=== PATIENT | male | born 1985 | race Caucasian/White ===

== ENCOUNTER 2024-07-31 20:07 | Emergency (ER) | payer OTHER, SELFPAY ==
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
[2024-07-31 20:21] VITALS: BP 150/106; PULSE 79; RESP 16; TEMP 36.4; O2SAT 98
[2024-07-31] MEDS: CYCLOBENZAPRINE HCL 5 MG TABLET PO (21:50)
[2024-07-31] MEDS: HYDROcodone/acetaminophen (*CRX) 5-325 MG TABLET 1 TAB PO (21:50)
--- NOTE | 2024-07-31 21:52 | PC.NURSE ---
patient in room stating, I cannot breath with this c-collar on . this rn educated patient on risks of removing cervical collar. pt verbalized he wanted his c- collar removed at this time. vital signs are within normal limits at this time. karis hodges made aware.
--- OUTSIDE RECORDS SUMMARY | 2024-07-31 22:33 | XMS_ITS | Continuity of Care Document ---
Author Organization [facility] Address [address] [place] [address] [address] [place] [address] Phone Care Team Providers Care Community Health Education Coordinator Name Role Phone Fabian Trejo Unavail able Procedures Procedure Date FCE Each 15min Therapeutic Activities Neuromuscular Re-Ed Therapeutic Exercise Manual Therapy Hot or Cold Pack Therapeutic Activities Therapeutic Exercise Neuromuscular Re-Ed Manual Therapy Hot or Cold Pack Therapeutic Exercise Neuromuscular Re-Ed Manual Therapy Therapeutic Activities Hot or Cold Pack Therapeutic Activities PT Evaluation Moderate Complexity Manual Therapy Hot or Cold Pack Electrical Stimulation Neuromuscular Re-Ed Therapeutic Exercise Neuromuscular Re-Ed Therapeutic Exercise Manual Therapy Therapeutic Activities Hot or Cold Pack Electrical Stimulation Therapeutic Activities Therapeutic Exercise Neuromuscular Re-Ed Hot or Cold Pack Manual Therapy Electrical Stimulation Therapeutic Activities Neuromuscular Re-Ed Progress Note Therapeutic Exercise Manual Therapy Hot or Cold Pack Electrical Stimulation Neuromuscular Re-Ed Manual Therapy Therapeutic Exercise Hot or Cold Pack Electrical Stimulation Therapeutic Exercise Manual Therapy Electrical Stimulation Neuromuscular Re-Ed Hot or Cold Pack Therapeutic Exercise Hot or Cold Pack Neuromuscular Re-Ed Therapeutic Activities Manual Therapy Electrical Stimulation Therapeutic Activities Progress Note Electrical Stimulation Manual Therapy Neuromuscular Re-Ed Hot or Cold Pack Therapeutic Exercise Therapeutic Activities Neuromuscular Re-Ed Therapeutic Exercise Manual Therapy Hot or Cold Pack Electrical Stimulation Manual Therapy Therapeutic Activities Neuromuscular Re-Ed Therapeutic Exercise Hot or Cold Pack Electrical Stimulation Hot or Cold Pack Electrical Stimulation Neuromuscular Re-Ed Therapeutic Exercise Therapeutic Activities Manual Therapy Progress Note Neuromuscular Re-Ed Therapeutic Activities Electrical Stimulation Hot or Cold Pack Manual Therapy Therapeutic Exercise Therapeutic Activities Neuromuscular Re-Ed Therapeutic Exercise Manual Therapy Hot or Cold Pack Electrical Stimulation Neuromuscular Re-Ed Therapeutic Exercise Therapeutic Activities Hot or Cold Pack Electrical Stimulation Manual Therapy Therapeutic Activities Neuromuscular Re-Ed Therapeutic Exercise Manual Therapy Hot or Cold Pack Electrical Stimulation Progress Note Therapeutic Activities Neuromuscular Re-Ed Therapeutic Exercise Hot or Cold Pack Manual Therapy Electrical Stimulation Therapeutic Activities Therapeutic Exercise Neuromuscular Re-Ed Hot or Cold Pack Manual Therapy Electrical Stimulation Neuromuscular Re-Ed Therapeutic Exercise Progress Note Therapeutic Activities Manual Therapy Hot or Cold Pack Electrical Stimulation Hot or Cold Pack Neuromuscular Re-Ed Therapeutic Activities Manual Therapy Therapeutic Exercise Electrical Stimulation Therapeutic Exercise Manual Therapy Therapeutic Activities Electrical Stimulation Neuromuscular Re-Ed Hot or Cold Pack Therapeutic Exercise Therapeutic Activities Manual Therapy Neuromuscular Re-Ed Electrical Stimulation Hot or Cold Pack Therapeutic Exercise Neuromuscular Re-Ed Manual Therapy Neuromuscular Re-Ed Hot or Cold Pack Therapeutic Exercise Electrical Stimulation Manual Therapy PT Evaluation Low Complexity Neuromuscular Re-Ed Therapeutic Exercise Hot or Cold Pack Electrical Stimulation Advance Directives Directive Yes / No Effective Date File Name No Information Encounters Encounter Description Practice Location Reason(s) For Visit Diagnoses Date Provider Providers Copied on Encounter [facility], [id number], tel:[phone] [place] No Information Gypsy Peralta. [address] [place] [address], [facility], . tel:[phone] Referring Provider: Andrea Kaba, [address] [place] [address] [place] [address], [address]. tel:[phone] [facility] [address], [id number], tel:[phone] [place] No Information Klely Richard. [address], [facility], . tel:[phone] Referring Provider: Rashaun Gibbons, [address] [place] [address], [address]. tel:[phone] [facility] [address], [id number], tel:[phone] [place] No Information Kelly Richard. [address] [facility], [address], [facility], . tel:[phone] Referring Provider: Rashaun Gibbons, [address] [place] [address], [address]. tel:[phone] [facility] [address], [id number], tel:[phone] [place] No Information Kelly Jose Manuel. [address] [facility], [address], [place], [address], [place]. tel:[phone] Referring Provider: Rashaun Gibbons, [address] [place] [address], [address]. tel:[phone] [address], [place], [place], [id number], [place] tel:[phone] [place] No Information Kelly Jose Manuel. [address] [facility], [address], [place], [address], [place]. tel:[phone] Referring Provider: Rashaun Gibbons, [facility] [place], [address]. tel:[phone] [facility] [address] [place], [place] [address], [place], [place], [id number], [place] tel:[phone] [place] No Information Ministerio Cotto. . Referring Provider: Serena Sr, [address] [place], [address]. tel:[phone] [place] [address] [facility], [place], [place], [id number], [place] tel:[phone] [place] No Information Ministerio Cotto. . Referring Provider: Serena Sr, [address] [place], [address]. tel:[phone] [facility] [address], [place], [place], [id number], [place] tel:[phone] [place] No Information Ministerio Cotto. . Referring Provider: Serena Sr [address] [place], [address]. tel:[phone] [facility], [place], [address], [place] tel:[phone] [place] No Information Kelly Jose Manuel. [address] [facility], [address], [place], [place], [facility], . tel:[phone] Referring Provider: [place], [address]. tel:[phone] [place] [address], [place], [place], [id number], tel:[phone] [place] No Information Kelly Richard. [address] [facility], [address], [place], [place], [facility], . tel:[phone] Referring Provider: Serena Sr, [address] [facility], [place], [address]. tel:[phone], [id number], tel:[phone] [place] No Information Maddison Valverde. [address] [place] [address], [address], [place], [facility], . tel:[phone] Referring Provider: [place], [address]. tel:[phone], [id number], tel:[phone] [place] No Information Ministerio Cotto. . Referring Provider: [place], [address]. tel:[phone], [id number], [place] tel:[phone] [place] No Information Ministerio Cotto. . Referring Provider: [place], [address]. tel:[phone] [facility] [address] [place], [place] [address], [place], [place], [id number], tel:[phone] [place] No Information Ministerio Cotto. . Referring Provider: Serena Remberto, [address] [place] [address], [address]. tel:[phone] [place] [address] [facility] [address], [place], [place], [id number], [place] tel:[phone] [place] No Information Ministerio Cotto. . Referring Provider: Serena Sr, [address] [place] [address], [address]. tel:[phone] [place] [address] [address], [place], [id number], [place] tel:[phone] [place] No Information Ministerio Cotto. . Referring Provider: Serena Sr, [address] [place] [address], [address]. tel:[phone] [place] [address] [facility] [address], [place], [place], [id number], tel:[phone] [place] No Information Ministerio Cotto. . Referring Provider: Serena Sr, [address] [place] [address], [address]. tel:[phone] [place] [address] [facility] [address], [place], [place], [id number], [place] tel:[phone] [place] No Information Ministerio Cotto. . Referring Provider: [place], [address]. tel:[phone] [place] [address] [facility] [address], [place], [id number], [place] tel:[phone] [place] No Information Ministerio Cotto. . Referring Provider: [place], [address]. tel:[phone] [facility], [address], [place], [place], [id number], [place] tel:[phone] [place] No Information Ministerio Cotto. . Referring Provider: Jory Ragsdale[address] [place] [address], [address]. tel:[phone] [facility], [address], [place], [place], [id number], [place] tel:[phone] [place] No Information Ministerio Cotto. . Referring Provider: Serena Sr, [address] [place] [address], [address]. tel:[phone] [place] [address] [address], [place], [id number], [place] tel:[phone] [place] No Information Essner Yadiel. . Referring Provider: Serena Sr, [address] [place] [address], [address]. tel:[phone] [place] [address], [facility] [address], [place], [place], [id number], [place] tel:[phone] [place] No Information Ministerio Cotto. . Referring Provider: Serena Sr, [address] [place], [address]. tel:[phone] [place] [address], [facility] [address], [place], [id number], [place] tel:[phone] [place] No Information Ministerio Cotto. . Referring Provider: [place], [address]. tel:[phone] [place] [address] [address], [place], [place], [address], [place] tel:[phone] [place] No Information Ministerio Cotto. . Referring Provider: [place], [address]. tel:[phone] [place] [address] [address], [place], [place], [id number], [place] tel:[phone] [place] No Information Minisetrio Cotto. . Referring Provider: [place], [address]. tel:[phone] [facility], [place], [place], [id number], tel:[phone] [place] No Information Ministerio Cotto. . Referring Provider: Serena Sr, [address] [employer], [place], [address]. tel:[phone] [facility], [place], [place], [id number], tel:[phone] [place] No Information Ministerio Cotto. . Referring Provider: Serena Sr, [address] [employer], [place], [address]. tel:[phone] Family History Family Member Type Diagnosis Age At Onset No Information Payers Payer name Insurance type Covered democrat ID Authorbrad dodgeharsh(s) [employer] [place] SP WC [id number] Social History Type Description Quantity Date Captured Comments Sex Male Smoking Status No Information Chief Complaint And Reason For Visit No Information Reason For Referral Reason For Referral No Information Plan Of Treatment Date Type Action Status Goal Tobacco Cessation Counseling completed Goal Tobacco cessation counseling completed Goal Tobacco Cessation Counseling completed Referral Ordered: Referrals: Specialist. Evaluate and Treat (related to Adjustment disorder with depressed mood) ordered Referral Ordered: Weight management: Referral to physician timeframe: 1 Month. (related to Overweight) ordered Referral Ordered: Depression: Depression management program timeframe: 1 Day. (related to Depression) ordered Referral Ordered: Depression: Depression management program timeframe: 1 Day. (related to Depression) ordered Referral Ordered: Clinical Psychology (related to Depression) ordered Referral Ordered: PCP timeframe: 1 week. (related to Overweight) ordered Referral Ordered: Referrals: Specialist. Evaluate and Treat (related to Adjustment disorder with depressed mood) ordered Referral Ordered: Clinical Psychology (related to Depression) ordered Referral Ordered: PCP timeframe: 1 week. (related to Overweight) ordered Referral Ordered: Weight management: Referral to physician timeframe: 1 Month. (related to Overweight) ordered Referral Ordered: Referrals: Specialist. Evaluate and Treat (related to Adjustment disorder with depressed mood) ordered Referral Ordered: Depression: Depression management program timeframe: 1 Day. (related to Depression) ordered Referral Ordered: Clinical Psychology (related to Depression) ordered Referral Ordered: Referrals: Specialist. Evaluate and Treat (related to Adjustment disorder with depressed mood) ordered Referral Ordered: Depression: Depression management program timeframe: 1 Day. (related to Depression) ordered Referral Ordered: Clinical Psychology (related to Depression) ordered History Of Present Illness Encounter Date Complaint History Of Prese nt Illness No Information Functional Status Date Functional Assessmen t No Information Instructions Date Instruction Additional Infor mation Prescribed activity/exercise edu cation Related to Overweight Prescribed activity/exercise edu cation Related to Overweight Dietary needs education Related to Overweight Dietary needs education Related to Overweight Assessments Type Assessment Date No Information Patient Care Teams Name Effective Dates (start - stop) Status Members No Information
--- OUTSIDE RECORDS SUMMARY | 2024-07-31 22:33 | XMS_ITS | Clinical Summary ---
Author Organization [facility] Address [address] [facility] [place] [address] Care Team Providers Care Rubber Grinder Name Role Phone Unavailable Primary Care Provider Unavailabl e Source Comments [facility],non-owned Affiliates and Associated Physician Practices is amultiple site organization consisting of ambulatory clinics and hospital sitesin [place], [place], [place] and [place]. This disclosure is being madepursuant to the Care Everywhere program and may not contain all information available regarding this patient. Last updated 18.[facility] Encounters Date Type Department Care Team Description 07/19/2024 Travel from Last 3 Months Social History Tobacco Use Types Packs/Day Years Used Date Smoking Tobacco: Never Assessed Sex and Gender Information Value Date Recorded Sex Assigned at Not on file Gender Identity Not on file Sexual Orientation Not on file Plan of Treatment Upcoming Encounters Date Type Department Care Team (Late st Contact Info) Description 08/03/2024 10:00 AM CDT Testing Visit [facility] - Otol[facility]ology [id number] Cueto [address] [place] [phone] Marie Fritz AuD [address] [place] [address] 08/03/2024 10:30 AM CDT Office Visit [facility] - Otolaryngology [address] [place] [phone] Faye Cartwright, YIELD LOSS INSPECTOR-SCHOOL AIDE [address] [place], [place] [id number] Health Maintenance Due Date Last Done Comments HIV SCREENING 10/23/1999 HEPATITIS C SCREENING 10/18/2002 DTAP/TDAP/TD VACCINES (1 - Tdap) 10/23/2003 HEPATITIS B VACCINE (1 of 3 - 19+ 3-dose series) 10/23/2003 COVID-19 VACCINE (2023-2 5 season) 2024 INFLUENZA VACCINE (#1) 2024 DEPRESSION SCREENING 05/05/2024 ZOSTER VACCINE (1 of 2) 2034 HIB VACCINE Aged Out No longer eligi ble based on patient's age to complete this topic HPV VACCINE Aged Out No longer eligi ble based on patient's age to complete this topic MENINGOCOCCAL (Group B) VACC INE SHARED DECISION-MAKING Aged Out No longer eligibl e based on patient's age to complete this topic MENINGOCOCCAL GROUPS A/C/Y/W VACCINE Aged Out No longer eligible b ased on patient's age to complete this topic PNEUMOCOCCAL VACCINE Aged Out No long er eligible based on patient's age to complete this topic Miguelangel Singletary Personal/Family Self 1985
--- OUTSIDE RECORDS SUMMARY | 2024-07-31 22:33 | XMS_ITS | Patient Health Record ---
Author Organization [facility] Address [address] [place] [address] Care Team Providers Care Machine Sander Name Role Phone Rashaun Gibbons Unavailable [phone] ALLERGIES No Known Allergies REASON FOR REFERRAL No Information MEDICATIONS Medication SIG (Take, Route, Fr equency, Duration) Notes Start Date End Date Status traMADol HCl 50 MG 1 tablet Orally q 6 hours PRN POST-procedural pain for 10 days 11/01/2021 Active diazePAM 5 MG TAKE 1 TABLET BY NEETU TH 30 MINUTES PRIOR TO MRI AND THE 2ND TABLET AT TIME OF MRI IF NEEDED Oral for 1 Active traMADol HCl 50 MG TAKE 1 TABLET BY NEETU TH EVERY 6 HOURS NEEDED FOR PAIN Oral for 15 Active SOCIAL HISTORY Tobacco Use: Social History Observation Description Date Details (start date - stop date) Never Smoker NA - NA Sex Assigned At : Social History Observation Description Sex Assigned At Unknown Tobacco Use/Smoking Question Answer Notes Are you a nonsmoker PROBLEMS Problem Type ICD Code Onset Dates Problem Status W/U Status Risk SNOMED Code Notes Problem Arthropathy of cervical facet joint (M47.812) Active confirmed Arthropathy of cervical spine facet joint (disorder) (516238297) Problem Neck pain (M54.2) Active confirmed Neck pain (12135687) PLAN OF TREATMENT No Information MEDICATIONS ADMINISTERED Medication Instructions Date of Administration Dosage Notes Bilateral C4-5-6 MBPR (cervi nikhil facet) RF Denervation 11/01/2021 Bilateral C5/6 Facet Joint Injections with Fluoroscopy 10/17/2021
--- OUTSIDE RECORDS SUMMARY | 2024-07-31 22:33 | XMS_ITS | Clinical Summary ---
Author Organization [facility] Address [address] [place] [address] Phone Care Team Providers Care Deployment Engineer Name Role Phone Unavailable Primary Care Provider Unavailabl e Allergies No known active allergies Medications cyclobenzaprine (FLEXERIL) 10 mg tablet Take 1 Tablet (10 mg) by mouth 3 times daily as needed for Spasm. 20 Tablet 1 Active naproxen (NAPROSYN) 500 mg tablet Take 1 Tablet (500 mg) by mouth 2 times daily with meals. 20 Tablet 1 Active diazePAM (VALIUM) 5 mg tablet TAKE 1 TABLET BY MOUTH 30 MINUTES PRIOR TO MRI AND THE 2ND TABLET AT TIME OF MRI IF NEEDED 2 Active methylPREDNISol one (MEDROL DOSPACK) 4 mg Tablets, Dose Pack TAKE DIRECTED 2 Active oxymetazoline (Afrin, oxymetazoline,) 0.05 % [place], Non-Aerosol Administer 2 Sprays in each nostril 2 times daily as needed for Congestion. Up to 3 days 22 mL 4 Active benzonatate (TESSALON) 200 mg capsule Take 1 Capsule (200 mg) by mouth 3 times daily as needed for Cough. 20 Capsule 4 Active cetirizine (ZyrTEC) 10 mg tablet Take 1 Tablet (10 mg) by mouth daily. 30 Tablet 4 Active Active Problems No known active problems Encounters Date Type Department Care Team Description 07/21/2024 External Device Data [facility] ABSTRACTION Provider, Abstract 07/21/2024 External Device Data [facility] ABSTRACTION Provider, Abstract 07/12/2024 External Device Data [facility]STRACTION Provider, Abstract 07/10/2024 External Device Data [facility] Provider, Abstract 07/09/2024 External Device Data [facility]STRACTION Provider, Abstract 07/06/2024 External Device Data [facility] ABSTRACTION Provider, Abstract 06/08/2024 External Device Data [facility] ABSTRACTION Provider, Abstract 06/08/2024 External Device Data [facility] ABSTRACTION Provider, Abstract 06/08/2024 External Device Data [facility] ABSTRACTION Provider, Abstract 05/27/2024 External Device Data [facility] ABSTRACTION Provider, Abstract 05/18/2024 External Device Data [facility] ABSTRACTION Provider, Abstract 05/11/2024 External Device Data [facility] ABSTRACTION Provider, Abstract from Last 3 Months Social History Tobacco Use Types Packs/Day Years Used Date Smoking Tobacco: Never Alcohol Use Standard Drinks/Week Comments No 0 (1 standard drink = 0.6 oz pur e alcohol) Feeling Safe Answer Date Recorded Are you in a relationship wi th someone who hurts you emotionally and/or physically? No 04/14/2024 Sex and Gender Information Value Date Recorded Sex Assigned at Not on file Legal Sex Male 2:23 PM PUBLIC INFORMATION OFFICER Gender Identity Not on file Sexual Orientation Not on file Last Filed Vital Signs Vital Sign Reading Time Taken Comments Blood Pressure 138/85 04/15/2024 12:20 AM PUBLIC INFORMATION OFFICER Pulse 81 04/15/2024 12:20 AM PUBLIC INFORMATION OFFICER Temperature 36.7 C (98.1 F) 04/15/2024 12:20 AM PUBLIC INFORMATION OFFICER Respiratory Rate 16 04/15/2024 12:20 AM PUBLIC INFORMATION OFFICER Oxygen Saturation 97% 04/15/2024 12:20 AM PUBLIC INFORMATION OFFICER Inhaled Oxygen Concentration - - Weight 88.5 kg (195 lb) 04/14/2024 9:04 PM PUBLIC INFORMATION OFFICER Height 170.2 cm (5' 7 ) 04/14/2024 9:04 PM PUBLIC INFORMATION OFFICER Body Mass Index 30.54 04/14/2024 9:04 PM PUBLIC INFORMATION OFFICER Plan of Treatment Health Maintenance Due Date Last Done Comments Pre-Diabetes and Diabetes Screening 1985 DTAP/TDAP/TD VACCINES (1 - Tdap) 10/23/2003 HEPATITIS B VACCINES (1 of 3 - 19+ 3-dose series) 10/23/2003 INFLUENZA VACCINE (#1) 2023 HPV VACCINES Aged Out No longer eligi ble based on patient's age to complete this topic Insurance [employer] [employer]
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
== END 2024-07-31 23:34 | disposition home or self-care (01) ==
PROVIDERS: Emergency Provider Physician Assistant
DX: S16.1XXA Strain of muscle, fascia and tendon at neck level, initial encounter (principal); S39.012A Strain of muscle, fascia and tendon of lower back, initial encounter; V49.40XA Driver injured in collision with unspecified motor vehicles in traffic accident, initial encounter
CPT/HCPCS: 70450; 71250; 72125; 72128; 72131; 74176; 99284; A9270